=== PATIENT | female | born 1945 | race American Indian/Alaskan Native ===

== ENCOUNTER 2019-03-02 18:39 | Emergency (ER) | payer SELFPAY ==
[2019-03-02 21:13] LABS: Hematocrit 42.6 % (30.3-42.9); Mean Corpuscular HGB Conc 33 % (30-34); Mean Corpuscular Volume 88 fl (79-97); Platelet Count 111 K/mm3 (140-440); Red Blood Count 4.83 M/mm3 (3.65-5.03); Red Cell Distribution Width 14.7 % (13.2-15.2)
[2019-03-02 21:25] LABS: INR 1.02 (0.87-1.13); Partial Thromboplastin Time 26.6 Sec. (24.2-36.6)
--- NOTE | 2019-03-02 21:25 | XRay Report ---
CHEST 1 VIEW INDICATION / CLINICAL INFORMATION: dizziness. COMPARISON: None available. FINDINGS: SUPPORT DEVICES: None. HEART / MEDIASTINUM: No significant abnormality. LUNGS / PLEURA: No significant pulmonary or pleural abnormality.. No pneumothorax. ADDITIONAL FINDINGS: No significant additional findings. IMPRESSION: 1. No acute findings. Signer Name: Beau Lake MD Signed: 03/02/2019 9:21 PM Workstation Name: [id number]
[2019-03-02 21:33] LABS: BUN/Creatinine Ratio 23; Blood Urea Nitrogen 9 mg/dL (7-17); Calcium 9.3 mg/dL (8.4-10.2); Hemolysis Index 6
[2019-03-02 22:15] LABS: RBC Morphology Normal; Total Cells Counted 100
--- NOTE | 2019-03-02 22:22 | Emergency Department Report ---
ED General Adult HPI - General Chief complaint: High BP Stated complaint: HBP Time Seen by Provider: 03/02/19 19:20 Source: EMS Mode of arrival: Stretcher Limitations: No Limitations - History of Present Illness Initial comments: 72-year-old female with history of hypertension presents to ED with complaint of elevated blood pressure over the last few days. Patient states she has been compliant with her blood pressure medication. Patient states she has been very busy, has lots of visitors in her home due to the holiday and believes that the stress is causing her blood pressure to be elevated. The patient reports she had some mild dizziness, which has now resolved. Denies headache, weakness or numbness, chest pain or shortness of breath. Upon EMS arrival patient has systolic BP in the 200s. -: days(s) (3) Consistency: now resolved Improves with: none Worsens with: none Associated Symptoms: other (reports dizziness). denies: chest pain, diaphoresis, headaches, nausea/vomiting, shortness of breath, syncope Treatments Prior to Arrival: none - Related Data Allergies Allergy/AdvReac Type Severity Reaction Status Date / Time No Known Allergies Allergy Verified 03/02/19 19:24 ED Review of Systems ROS: Stated complaint: HBP Other details as noted in HPI Comment: All other systems reviewed and negative Constitutional: denies: chills, fever Respiratory: denies: cough, shortness of breath Cardiovascular: denies: chest pain, palpitations Gastrointestinal: denies: nausea, vomiting Neurological: denies: headache, weakness, numbness, abnormal gait ED Past Medical Hx - Past Medical History Previous Medical History?: Yes Hx Hypertension: Yes Hx Congestive Heart Failure: Yes Hx Diabetes: Yes Additional medical history: "kidney problems" - Surgical History Past Surgical History?: No - Social History Smoking Status: Current Some Day Smoker Substance Use Type: None ED Physical Exam - General Limitations: No Limitations General appearance: alert, in no apparent distress - Head Head exam: Present: atraumatic, normocephalic - Eye Eye exam: Present: normal appearance, EOMI - ENT ENT exam: Present: mucous membranes moist - Neck Neck exam: Present: normal inspection - Respiratory Respiratory exam: Present: normal lung sounds bilaterally. Absent: respiratory distress - Cardiovascular Cardiovascular Exam: Present: regular rate, normal rhythm - GI/Abdominal GI/Abdominal exam: Present: soft. Absent: distended, tenderness - Extremities Exam Extremities exam: Present: normal inspection - Neurological Exam Neurological exam: Present: alert, oriented X3, CN II-XII intact, normal gait. Absent: motor sensory deficit - Psychiatric Psychiatric exam: Present: normal affect, normal mood - Skin Skin exam: Present: warm, dry, intact, normal color ED Course Vital Signs 03/02/19 03/02/19 03/02/19 19:15 19:19 19:23 Temperature 97.9 F Pulse Rate 73 72 Respiratory 11 L 12 14 Rate Blood Pressure 155/71 155/71 O2 Sat by Pulse 98 98 98 Oximetry 03/02/19 03/02/19 03/02/19 19:30 20:00 20:30 Temperature Pulse Rate 73 63 61 Respiratory 14 14 12 Rate Blood Pressure 155/69 164/80 152/73 O2 Sat by Pulse 97 99 97 Oximetry 03/02/19 03/02/19 03/02/19 21:00 21:30 22:00 Temperature Pulse Rate 64 55 L 58 L Respiratory 20 19 18 Rate Blood Pressure 152/73 152/73 144/72 O2 Sat by Pulse 99 Oximetry 03/02/19 03/02/19 22:30 23:00 Temperature Pulse Rate 57 L 60 Respiratory 14 12 Rate Blood Pressure 144/72 176/89 O2 Sat by Pulse 99 98 Oximetry ED Medical Decision Making - Lab Data Result diagrams: 03/02/19 21:03 03/02/19 21:03 - EKG Data -: EKG Interpreted by Vt EKG shows normal: sinus rhythm, axis, intervals, QRS complexes, ST-T waves Rate: normal - EKG Data Interpretation: no acute changes - Radiology Data Radiology results: report reviewed, image reviewed - Medical Decision Making 73-year-old female with elevated blood pressure home. Blood pressure has improved while in the ED without medications. She reports she had some dizziness earlier, which is now resolved. Neuro exam is normal and nonfocal, gait is normal. EKG shows no ST changes. Troponin is normal. Patient is now much better at this time. She is urged to follow-up with her PCP. Return precautions given. - Differential Diagnosis hypertensive dizziness, uncontrolled HTN Critical care attestation.: If time is entered above; I have spent that time in minutes in the direct care of this critically ill patient, excluding procedure time. ED Disposition Clinical Impression: Uncontrolled hypertension Disposition: DC-01 TO HOME OR SELFCARE Is pt being admited?: No Condition: Stable Instructions: Hypertension (ED) Referrals: PRIMARY CARE, [Primary Care Provider] - 3-5 Days Time of Disposition: 22:21
[2019-03-02 23:20] VITALS: BP 176/89
== END 2019-03-02 23:13 | disposition home or self-care (01) ==
LOC: ED 18:39
DX: I11.0 Hypertensive heart disease with heart failure (principal); I50.9 Heart failure, unspecified; F17.200 Nicotine dependence, unspecified, uncomplicated
CPT/HCPCS: 36415; 71045; 80048; 84484; 85007; 85025; 85610; 85730; 93005; 93010